=== PATIENT | female | born 1950 | race Caucasian/White ===

== ENCOUNTER → 2017-01-24 17:22 | Outpatient (CLI) | payer MEDICARE, OTHER | END | disposition home or self-care (01) | LOC: D.MAMMO 14:15 | DX: Z12.31 Encounter for screening mammogram for malignant neoplasm of breast (principal) ==

== ENCOUNTER → 2017-11-27 12:46 | Outpatient (CLI) | payer MEDICARE, OTHER | END | disposition home or self-care (01) | LOC: D.RAD 11-20 13:00 | DX: R13.12 Dysphagia, oropharyngeal phase (principal) ==

== ENCOUNTER → 2018-11-16 06:31 | Outpatient (CLI) | payer MEDICARE, OTHER | END | disposition home or self-care (01) | LOC: D.MRI 06:31 | DX: R51 Headache (principal) ==

== ENCOUNTER 2019-10-21 14:40 | Outpatient (CLI) | payer MEDICARE, OTHER ==
[~2019-10-21] VITALS: Ht 167.6 cm; Wt 68.2 kg
--- NOTE | ~2019-10-21 | HEMODYNAMI ---
PATIENT:MODE WREN MEDICAL RECORD: [id number] : 50 LOCATION:[facility] D.2117 ADMISSION DATE: 10/21/19 Generatedon:10/22/201911:22 Patient name: MODE RWEN Patient #: [id number] : 1950 Date of study: 10/22/2019 Page: Of Hemodynamic Procedure Report Patient Data Patient Demographics Procedure consent was obtained First Name: MODE Gender: Female Last Name: HOLGER : 1950 Middle Initial: RC Age: 69 year(s) Patient #: [id number] Race: SSN: [id number] Additional ID: [id number] Contact details Address: [address] [place] [address] [employer] State: [place] City: [place] Zip code: [address] Past Medical History Allergies: No known allergies Admission Admission Data Admission Date: 10/21/2019 Admission Time: 14:40 Arrival Date: 10/21/2019 Arrival Time: 14:40 Admit Source: Emergency Insurance Payor: Medicare department [facility] #: [id number] Room #: D.2117 Height (in.): 66 BSA: 1.77 (m2) Height (cm.): 167.64 BMI: 24.21 (kg/m2) Weight (lbs.): 150 Weight (kg.): 68.04 Lab Results Lab Result Date: 10/22/2019 Lab Result Time: 0:00 Biochemistry Name Units Result Min Max BUN mg/dl 15 --(--*-)-- 7 18 Creatinine mg/dl 0.7 --(*---)-- 0.6 1.3 eGFR ml/min 88.63036 -*(----)-- 90 120 NONAFRICAN CBC Name Units Result Min Max Hemoglobin g/dl 11.9 *-(----)-- 13.5 17.5 Procedure Procedure Types Cath Procedure Diagnostic Procedure LHC LHC w/Coronaries FFR/IVUS FFR Initial Sedation Charges Moderate Sedation up to 15 minutes PCI Procedure Coronary Stent Coronary Stent Initial x2 Hemochron ACT Test Procedure Description Procedure Date Procedure Date: 10/22/2019 Procedure Start Time: 11:00 Procedure End Time: 11:21 Procedure Staff Name Function Mario Garcia MD Performing Physician Ruma Sullivan RT Monitor Manasa Hemphill RT Scrub Hank Arevalo RN Nurse Procedure Data Cath Procedure Fluoroscopy Diagnostic fluoroscopy Total fluoroscopy Time: 5 time: 5 min min Diagnostic fluoroscopy Total fluoroscopy dose: dose: 1073 mGy 1073 mGy Contrast Material Contrast Material Type Amount (ml) Isovue 300 132 Entry Location Entry Primary Successful Side Size Upsize Upsize Entry Closure Panchal ccessful Closure Location (Fr) 1 (Fr) 2 (Fr) Remarks Device Remarks Radial Right 6 Fr Mechanical artery Short Compression Estimated blood loss: 5 ml Diagnostic catheters Device Type Used For End Catheter Placement DIAGNOSTIC [place] 110cm 5 Procedure Fr catheter ([id number]) Procedure Complications No complications Procedure Medications Medication Administration Route Dosage 0.9% NaCl I.V. 100 ml/hr Oxygen etCO2 Nasal cannula 2 l/min Heparin Flush Bag added to field 2 bags (1000units/500ml NS) Lidocaine 2% added to field 20 Radial Cocktail added to field 1 syringe (Verapamil 2mg/Nitro 400mcg/Heparin 1500units) Versed I.V. 1 mg Fentanyl I.V. 50 mcg Versed I.V. 1 mg Fentanyl I.V. 50 mcg Radial Cocktail I.A. 1 syringe (Verapamil 2mg/Nitro 400mcg/Heparin 1500units) Heparin Bolus I.V. 4000 units Plavix P.O. 75 mg Hemodynamics Rest BSA: 1.77 (m2) HGB: 11.9 (g/dl) O2 Consumption: Estimated: 170.01 (ml/min) O2 Co nsumption indexed: Estimated:96.05 (ml/min/m) Heart Rate: 80 (bpm) Snapshots Pre Cath Intra NCS Post Cath Vital Signs Time Heart Resp SPO2 etCO2 NIBP (mmHg) Rhythm Pain Sedation Rate (ipm) (%) (mmHg) Status Level (bpm) 10:53:41 83 18 97 0 128/79(102) NSR 0 (11) 10(A) , No pain 10:55:15 82 12 94 0 112/77(98) NSR 0 (11) 10(A) , No pain 10:59:23 74 15 92 44 108/58(77) NSR 0 (11) 10(A) , No pain 11:03:33 76 13 96 46.3 85/51(69) NSR 0 (11) 9(A) , No pain 11:07:37 75 19 95 26.5 95/57(69) NSR 0 (11) 9(A) , No pain 11:11:42 72 11 94 18.9 95/49(67) NSR 0 (11) 10(A) , No pain 11:15:44 79 14 96 47 108/59(79) NSR 0 (11) 10(A) , No pain 11:19:50 76 14 98 40.9 106/60(78) NSR 0 (11) 10(A) , No pain Medications Time Medication Route Dose Verified Delivered Reason Not es Effectiveness by by 10:58:25 0.9% NaCl I.V. 100 Hank Hank Per physician ml/hr Mickey Arevalo RN RN 10:58:35 Oxygen etCO2 2 l/min Hank Hank for low 02 sats Nasal Lorigan Lorigan cannula RN RN 10:58:45 Heparin Flush added 2 bags Hank Hank used for Bag to Lorigan Mickey procedure (1000units/500ml [facility] RN RN NS) 10:58:57 Lidocaine 2% added 20ml Hank Hank for local to vial Lorigan Lorigan anesthetic RN RN 10:59:10 Radial Cocktail added 1 Hank Hank used for (Verapamil to syringe Lorigan Lorigan procedure 2mg/Nitro RN RN 400mcg/Heparin 1500units) 10:59:22 Versed I.V. 1 mg Hank Hank for sedation Mickey Arevalo RN RN 10:59:30 Fentanyl I.V. 50 mcg Hank Hank for sedation Mickey Arevalo RN RN 11:00:56 Versed I.V. 1 mg Hank Hank for sedation Mickey Arevalo RN RN 11:01:01 Fentanyl I.V. 50 mcg Hank Hank for sedation Mickey Arevalo RN RN 11:02:36 Radial Cocktail I.A. 1 Hank Mario for (Verapamil syringe Mickey Garcia MD vasodilation 2mg/Nitro RN 400mcg/Heparin 1500units) 11:08:30 Heparin Bolus I.V. 4000 Hank Hank for units Mickey Arevalo anticoagulation RN RN 11:19:36 Plavix P.O. 75 mg Hank Mckinney for Mickey Mickey antiplatelet RN RN therapy Procedure Log Time Note 10::26 Diagnostic Cath Status : Urgent 10::13 Informed consent obtained and on chart 10:27:13 Admit Source: Emergency department 10:27:17 Arrival Date: 10/21/2019 2:40:00 PM 10:27:41 Insurance Payor : Medicare 10:28:11 Patient Height : 66 inches 10:28:15 Patient Weight : 150 lbs 10::47 Lab Result : Hemoglobin 11.9 g/dl 10::47 Lab Result : eGFR NONAFRICAN 88.59000 ml/min 10::47 Lab Result : BUN 15 mg/dl 10::47 Lab Result : Creatinine 0.7 mg/dl 10:32:09 Hank Arevalo RN sent for patient. Start room use. 10:32:10 Time tracking: Regular hours (M-F 7:00 - 5:00) 10:32:14 Plan of Care:Hemodynamics will remain stable., Cardiac rhythm will remain stable., Comfort level will be maintained., Respiratory function will remain adequate., Patient/ family verbilizes understanding of procedure., Procedure tolerated without complication., Recovers from procedure without complications.. 10:32:22 Risk of Mortality: 7.6 10:32:26 Risk of blood transfusion: 3.5 10:32:32 Risk of KATHY: 10.2 10:33:04 2) 60-89 Mildly reduced kidney function, and other findings (as for stage 1) point to kidney disease. 10:34:38 Maximum allowable contrast dose (3.7 X eGFR X 0.75)244 ml. 10:35:21 Patient received from Med II to CCL 2 Alert and oriented. Tansferred to table in Supine position. 10:35:22 Warm blankets applied, and farrah hugger turned on for patient comfort. 10:35:23 Correct patient and procedure confirmed by team. 10:35:23 ECG and BP/O2 sat monitors applied to patient. 10:40:41 Vital chart was started 10:40:42 Baseline sample Acquired. 10:40:43 Full Disclosure recording started 10:40:57 H&P Date Dictated: 10/21/2019 Within 30 days and on chart.. 10:40:58 Pre-procedure instructions explained to patient. 10:41:01 Family in patients room. 10:41:03 Patient NPO since Midnight. 10:41:09 Patient allergic to No known allergies 10:41:12 Is the patient allergic to Iodine/contrast media? No. 10:41:13 Was the patient premedicated? Yes 10:41:14 Is patient on blood thinner?No 10:41:22 Snore? Yes 10:41:25 Sleep apnea? No 10:41:29 Dentures? No ? 10:41:41 Right Radial & Right Groin area was prepped with chlora-prep and draped in sterile fashion 10:41:42 Alarms reviewed by R. N. 10:41:43 Sharps counted by scrub and verified by R.N. 10:41:44 Physician paged 10:48:17 Patient diabetic? No. 10:48:19 Previous problem with sedation/anesthesia? No ? 10:48:21 Deviated septum? No 10:48:21 Opens mouth fully? Yes 10:48:23 Sticks out tongue? Yes 10:48:26 Airway obstruction? No ? 10:48:31 Pre procedure: right dorsailis pedis pulse 2+ Normal; easily identifiable; not easily obliterated 10:48:33 Pre procedure: left dorsailis pedis pulse 2+ Normal; easily identifiable; not easily obliterated 10:48:35 Patient pain scale 0/10 ?. 10:54:49 Physician arrived 10:54:50 --------ALL STOP TIME OUT------ 10:54:50 Final Timeout: patient, procedure, and site verified with staff and physician. All members of the team are in agreement. 10:54:57 Right Radial & Right Groin site verified by team. 10:55:02 Fire Safety Assessment: A--An alcohol-based skin anteseptic being used preoperatively., C--Open oxygen or nitrous oxide is being used., D--An ESU, laser, or fiber-optic light is being used. 10:55:08 Physical assessment completed. ASA score P 2 - A patient with mild systemic disease as per Mario Garcia MD. 10:55:23 Use device set Radial Dx or PCI 10:55:25 ACIST Syringe (59232) opened to sterile field. 10:55:25 Medline Cath Pack ([id number]) opened to sterile field. 10:55:26 Bag Decanter (2002S) opened to sterile field. 10:55:26 ACIST Hand Control (29668) opened to sterile field. 10:55:27 ACIST Manifold (77496) opened to sterile field. 10:55:27 Tegaderm 4 x 4 (1626W) opened to sterile field. 10:55:30 MBrace Wrist Support ([id number]) opened to sterile field. 10:55:33 EMERALD Guide Wire (072-139) opened to sterile field. 10:55:33 SHEATH 6FR RAIN (9681348) opened to sterile field. 10:58:25 0.9% NaCl 100 ml/hr I.V. was administered by Hank Arevalo RN; Per physician; Verbal order read back and verified. 10:58:35 Oxygen 2 l/min etCO2 Nasal cannula was administered by Hank Arevalo RN; for low 02 sats; Verbal order read back and verified. 10:58:45 Heparin Flush Bag (1000units/500ml NS) 2 bags added to field was administered by Hank Arevalo RN; used for procedure; Verbal order read back and verified. 10:58:57 Lidocaine 2% 20ml vial added to field was administered by Hank Arevalo RN; for local anesthetic; Verbal order read back and verified. 10:59:10 Radial Cocktail (Verapamil 2mg/Nitro 400mcg/Heparin 1500units) 1 syringe added to field was administered by Hank Arevalo RN; used for procedure; Verbal order read back and verified. 10:59:22 Versed 1 mg I.V. was administered by Hank Arevalo RN; for sedation; Verbal order read back and verified. 10:59:30 Fentanyl 50 mcg I.V. was administered by Hank Arevalo RN; for sedation; Verbal order read back and verified. 11:00:41 Procedure started. 11:00:52 Local anesthetic to right radial artery with Lidocaine 2% by Mario Garcia MD.INITIAL ACCESS ONLY 11:00:56 Versed 1 mg I.V. was administered by Hank Arevalo RN; for sedation; Verbal order read back and verified. 11:01:01 Fentanyl 50 mcg I.V. was administered by Hank Arevalo RN; for sedation; Verbal order read back and verified. 11:01:04 A 6 Fr Short sheath was inserted into the Right Radial artery 11:02:10 A DIAGNOSTIC [place] 110cm 5 Fr catheter ([id number]) was advanced over the wire and used for Procedure. 11:02:14 LV angiography performed. 11:02:29 Zero performed for pressure channel P1 11::34 Zero performed for pressure channel P1 11:02:36 Radial Cocktail (Verapamil 2mg/Nitro 400mcg/Heparin 1500units) 1 syringe I.A. was administered by Mario Garcia MD; for vasodilation; Verbal order read back and verified. 11:02:48 LV gram done using PETE 11:03:06 EF : 60 % 11:03:12 LCA angiography performed. 11:04:26 RCA angiography performed. 11:06:09 GUIDE 6FR AR 1.0 catheter ([id number]) opened to sterile field. 11:06:10 INFLATOR Merit BasixCompak (KM3035) opened to sterile field. 11:06:10 Intale Verrata Plus pressure wire (76732P) opened to sterile field. 11:06:15 Catheter removed. 11:06:42 6 Fr ar1 guide catheter was inserted over the wire 11:08:19 FFR/IFR wire advanced. 11:08:30 Heparin Bolus 4000 units I.V. was administered by Hank Arevalo RN; for anticoagulation; Verbal order read back and verified. 11:09:08 PDA lesion measured at .88 with IFR 11:09:55 Pre PCI Site: [place] PDA has 80% stenosis. 11:11:12 Place stent Inflation Number: 1 A LUL RX 3.0 x 12 stent ([id number]) was prepped and advanced across the R PDA 80. The stent was deployed at 9 GE[place]GINA for 0:09 (min:sec) 0. 11:12:27 GUIDE 6FR XBLAD 3.5 SH catheter ([id number]) opened to sterile field. 11:12:37 Post PCI Site: [place] dRCA has 0% stenosis. 11:12:44 Wire removed. 11:12:45 Guide catheter removed. 11:13:09 6 Fr XBLAD3.5 guide catheter was inserted over the wire 11:13:14 CHOICE PT wire advanced. 11:13:25 CHOICE PT Extra Support 182cm wire ([id number]) opened to sterile field. 11:13:35 Wire advanced across lesion. 11:13:45 Pre PCI Site: [place] pLAD has 80% stenosis. 11:15:37 Place stent Inflation Number: 1 A LUL RX 3.5 x 12 stent ([id number]) was prepped and advanced across the Prox LAD 80. The stent was deployed at 15 GEORGINA for 0:08 (min:sec) 0. 11:16:06 Post PCI Site: [place] pLAD has 0% stenosis. 11:16:19 ZEPHYR REGULAR TR BAND (382132) opened to sterile field. 11:16:39 Wire removed. 11:16:40 Guide catheter removed. 11:18:16 Sheath removed intact; hemostasis achieved with Mechanical Compression to the Right Radial artery. 11:18:30 ACT drawn and resulted at 335 seconds. (normal therapeutic range 180-240 seconds). 11:18:38 Procedure ended.(Physican Out) 11:18:48 Fluoroscopy time 05.00 minutes. 11:18:54 Fluoroscopy dose: 1073 mGy 11:18:54 Flurop Dose total: 1073 11:18:59 Dose Area Product 07269 mGy/cm. 11:19:04 Contrast amount:Isovue 300 132ml. 11:19:05 Maximum allowable dose exceeded? No. 11:19:10 [place] band inflated with 10cc of air. 11:19:18 Insertion/operative site no bleeding no hematoma. 11:19:20 Post Procedure Pulses reassessed and unchanged 11:19:27 Post-procedure physical assessment completed. ASA score P 2 - A patient with mild systemic disease as per Mario Garcia MD. 11:19:32 Post procedure rhythm: unchanged. 11:19:36 Plavix 75 mg P.O. was administered by Hank Arevalo RN; for antiplatelet therapy; Verbal order read back and verified. 11:19:38 Estimated blood loss: 5 ml 11:19:39 Post procedure instruction explained to patient.Patient verbalizes understanding. 11:20:21 Procedure type changed to Cath procedure, Diagnostic procedure, LHC, LHC w/Coronaries, FFR/IVUS, FFR Initial, Sedation Charges, Moderate Sedation up to 15 minutes, PCI procedure, Coronary Stent, Coronary Stent Initial x2, Hemochron ACT Test 11:20:23 Procedure and supply charges have been captured, reviewed, submitted and are correct. 11:20:57 Procedure Complication : No complications 11:21:00 Vital chart was stopped 11:21:04 [facility] Findings: MVD- PCI performed (see procedure note) 11:21:10 Operative report dictated upon procedure completion. 11:21:11 See physician's report for complete and final results. 11:21:14 Report given to [facility]. 11:21:18 Patient transfered to [facility] with Stretcher. 11:21:20 Procedure ended. 11:21:20 Full Disclosure recording stopped 11:21:26 End room use (Document Last) 11:21:34 ACC-PCI Only Patient was given prescriptions, or instructed by Mario Garcia MD to start/continue the following medications upon discharge: Plavix Intervention Summary Intervention Notes Time ActionType Lesion and Equipment Used Action# Pressure Duration Attributes 11:11:12 Place stent R PDA LUL RX 3.0 x 1 9 00:09 12 stent ([id number]) 11:15:37 Place stent Prox LAD LUL RX 3.5 x 1 15 00:08 12 stent ([id number]) Device Usage Item Name Manufacture Quantity Catalog Number Hospital Part Current Minimal Lot# / Charge Number Stock Stock Serial# Code ACIST Syringe Acist 1 91524 212641 409383 [id number] 20 (54135) Medical Systems Inc Medline Cath Medline 1 [id number] 774145 95830 238992 5 Pack ([id number]) Bag Decanter Microtek 1 2001S 094553 51157 165393 5 (2001S) Medical Inc. ACIST Hand Acist 1 61121 708876 734478 726823 5 Control Medical (07673) Systems Inc ACIST Manifold Acist 1 01135 946651 913777 668953 5 (34583) Medical Systems Inc Tegaderm 4 x 4 3M 1 1626W 602639 294101 995635 5 (1626W) MBrace Wrist Advanced 1 140-0250-00 651188 17133 950828 5 Support Vascular (861331752) Dynamics EMERALD Guide Cardinal 1 609-980 155285 932722 905647 5 Wire (284-387) Health SHEATH 6FR Cardinal 1 7680172 116227 4670913 393030 5 RAIN (4374236) Health DIAGNOSTIC Terumo 1 00-4606 131483 005076 948918 5 [place] 110cm 5 Fr catheter (329850) GUIDE 6FR AR Medtronic 1 [id number] 203578 52728 396665 1 1.0 catheter ([id number]) INFLATOR Merit Merit 1 SN9856 072846 114543 075970 15 [facility] (KI5636) Glendora Glendora 1 06082E 865252 [id number] 685950 5 Verrata Plus pressure wire (99286P) LUL RX 3.0 x Medtronic 1 [id number] 053067 8966060 320376 5 [id number] 12 stent ([id number]) GUIDE 6FR Cardinal 1 [id number] 492528 852885 933969 3 XBLAD 3.5 SH Health catheter (08785671) CHOICE PT [place] 1 [id number] 123747 782336 463487 5 Extra Support Scientific 182cm wire ([id number]) LUL RX 3.5 x Medtronic 1 [id number] 105592 9142055 788136 5 [id number] 12 stent ([id number]) ZEPHYR REGULAR Cardinal 1 651955 129051 0127831 148794 5 [facility] (367492) Signature Audit [place] Stage Time Signature Unsigned Intra-Procedure 10/22/2019 Ruma Sullivan 11:21:55 AM RT(R) Intra-Procedure 10/22/2019 Hank 11:22:20 AM Mickey MASTERS Intra-Procedure 10/22/2019 Mario Garcia 11:22:41 AM Signatures Performing Physician : Signature : Mario Garcia MD Date : Time : Monitor : Ruma Sullivan Signature : RT Date : Time : Nurse : Hank Lorigan Signature : RN Date : Time : [place] [address] [place] [address]
[2019-10-21] MEDS ORDERED: LIPITOR40 MG PO (14:51)
[2019-10-21] MEDS ORDERED: PROTONIX40 MG PO (14:51)
[2019-10-21] MEDS ORDERED: CYMBALTA20 MG PO (14:52)
[2019-10-21] MEDS ORDERED: GABAPENTIN300 MG PO (14:52)
[2019-10-21 15:09] LABS: BASOPHILS 0.2 % (0-2); EOSINOPHILS 0.5 % (0-7); HEMATOCRIT 40.7 % (36.0-48.0); IMMATURE GRANULOCYTES 0.1 % (0-5); LYMPHOCYTES 13.3 % (15-50); MCH 32.2 pg (26.0-34.0); MCHC 34.4 g/dL (31.0-37.0); MCV 93.6 fL (80.0-100.0); MEAN PLATELET VOLUME 11.4 fL (7.4-10.4); NEUTROPHILS 80.9 % (40-80); PLATELET COUNT 154 10x3/uL (130-400); RBC 4.35 10x6/uL (4.00-5.40); RDW 12.8 % (11.5-14.5); WBC 10.5 10x3/uL (4.8-10.8)
[2019-10-21 15:35] LABS: APTT 26.7 SECONDS (22.8-39.4); INR 0.98 (0.85-1.17); PROTIME 12.5 SECONDS (11.6-15.0)
[2019-10-21 15:36] LABS: CALC OSMOLALITY 283 mosm/kg (275-300); CALCIUM 9.7 mg/dL (8.5-10.1); CARBON DIOXIDE 24.6 mmol/L (21.0-32.0); CHLORIDE - SERUM 104 mmol/L (98-107); CREATININE - SERUM 0.7 mg/dL (0.6-1.3); GLUCOSE 147 mg/dL (74-106); POTASSIUM - SERUM 3.5 mmol/L (3.5-5.1); SODIUM 140 mmol/L (136-145); UREA NITROGEN 18 mg/dL (7-18); eGFR NON AFRICAN AMERICAN 88 mL/min (90-120)
[2019-10-21 15:54] VITALS: Ht 167.6 cm; Wt 68.2 kg
[2019-10-21 15:59] LABS: ALBUMIN 3.9 g/dL (3.4-5.0); ALKALINE PHOSPHATASE 88 U/L (46-116); ALT (SGPT) 27 U/L (10-68); BILIRUBIN - TOTAL 0.39 mg/dL (0.2-1.3); CKMB 5.3 U/L (0.0-3.6); CREATINE KINASE 118 UL (21-215)
[2019-10-21 16:01] LABS: TROPONIN-I 3.264 ng/mL (0.000-0.060)
[2019-10-21 20:41] VITALS: BP 118/91
[2019-10-21] MEDS ORDERED: MAG-OX 400 MG400 MG PO (20:45)
[2019-10-21] MEDS ORDERED: VITAMIN D31000 UNIT PO (20:46)
[2019-10-22 00:35] VITALS: BP 112/57
[2019-10-22 04:00] VITALS: BP 91/51
[2019-10-22 05:46] LABS: BASOPHILS 0.4 % (0-2); EOSINOPHILS 2.5 % (0-7); HEMATOCRIT 35.8 % (36.0-48.0); HEMOGLOBIN 11.9 g/dL (12-16); IMMATURE GRANULOCYTES 0.4 % (0-5); LYMPHOCYTES 29.2 % (15-50); MCH 31.7 pg (26.0-34.0); MCHC 33.2 g/dL (31.0-37.0); MCV 95.5 fL (80.0-100.0); MEAN PLATELET VOLUME 11.4 fL (7.4-10.4); MONOCYTES 7.4 % (2-11); NEUTROPHILS 60.1 % (40-80); PLATELET COUNT 150 10x3/uL (130-400); RBC 3.75 10x6/uL (4.00-5.40); RDW 12.9 % (11.5-14.5)
[2019-10-22 06:05] LABS: ALBUMIN 3.4 g/dL (3.4-5.0); ALKALINE PHOSPHATASE 79 U/L (46-116); ALT (SGPT) 25 U/L (10-68); BILIRUBIN - TOTAL 0.37 mg/dL (0.2-1.3); CALC OSMOLALITY 279 mosm/kg (275-300); CALCIUM 8.6 mg/dL (8.5-10.1); CARBON DIOXIDE 28.2 mmol/L (21.0-32.0); CHLORIDE - SERUM 105 mmol/L (98-107); CREATININE - SERUM 0.7 mg/dL (0.6-1.3); POTASSIUM - SERUM 3.9 mmol/L (3.5-5.1); PROTEIN - SERUM 6.9 g/dL (6.4-8.2); SODIUM 140 mmol/L (136-145); UREA NITROGEN 15 mg/dL (7-18); eGFR NON AFRICAN AMERICAN 88 mL/min (90-120)
[2019-10-22 06:06] LABS: GLUCOSE 90 mg/dL (74-106)
[2019-10-22 06:36] LABS: WBC 5.7 10x3/uL (4.8-10.8)
--- NOTE | 2019-10-22 07:15 | NUR ---
RECEIVED PT IN BED AAOX4 RESP UNLABORED SKIN W/D COLOR WNL DENIES ANY NEEDS OR CHEST PAIN AT THIS TIME NAD NOTED WILL CONTINUE TO MONITOR
[2019-10-22 11:01] VITALS: BP 120/74
--- NOTE | 2019-10-22 11:17 | HP ---
PATIENT: MODE WREN MEDICAL RECORD: [id number] ACCOUNT: [id number] LOCATION:[address] : 50 ADMISSION DATE: 10/21/19 PCP: CHANDU BATISTA MD HISTORY AND PHYSICAL EXAMINATION ADMITTING DIAGNOSES: 1. Unstable angina. 2. Abnormal ECG. 3. Family history of coronary artery disease. 4. Hyperlipidemia. 5. Shortness of breath, dyspnea on exertion. HISTORY OF PRESENT ILLNESS: This is a woman with a history of coronary artery disease. Last cardiac catheterization was by Dr. Atkinson in 2006. He told her that she had coronary disease, but not to the degree of needing an intervention. She was doing well until the past few days. She has had increasing episodes of chest pain to the point of class IV rest pain as well she has significant shortness of breath and dyspnea on exertion. Her EKG has T-wave inversions in the inferior leads and flattened T waves in the lateral leads. She continues to have the pain at rest here while being interviewed in the Emergency Room. It is a relatively typical angina, dull aching heaviness sensation like a band around her chest. PHYSICAL EXAMINATION: CONSTITUTIONAL/GENERAL APPEARANCE: Well nourished, well developed, appears stated age. EYES: Lids and conjunctivae noninjected. No discharge. No pallor. ENT: Lips within normal limit. No cyanosis. No pallor. NECK: Carotid arteries, bilateral normal upstroke. No bruits. No thrills. No jugular venous pressure or distention. CERVICAL LYMPH NODES: Nontender. Nonenlarged. THYROID: Not enlarged. No nodules. CARDIOVASCULAR: Precordial exam, nondisplaced. No heaves or pericardial thrills. Rate and rhythm, regular. Heart sounds, normal S1, normal S2. No S3, no gallop, no rub. Systolic murmur, not heard. Diastolic murmur, not heard. RESPIRATORY: Respiratory effort, unlabored. Normal curvature. No thoracic deformity. No chest wall tenderness. Percussion, resonant. Auscultation, clear. No wheezes, no rales, no rhonchi. ABDOMEN: Soft, nondistended, nontender. No abdominal pain, no vomiting and normal appetite. MUSCULOSKELETAL: No joint tenderness, normal gait, normal tone. SKIN: Warm and dry. OVERALL IMPRESSION: Unstable angina with a classic anginal symptomatology, shortness of breath, abnormal ECG, most likely she does have clinically significant coronary artery disease. She has a past history of coronary artery disease from 12 years ago that was not intervened. We will proceed with coronary angiography in the a.m. Further care depends upon findings of the angiography. TRANSINT:[id number] Voice Confirmation ID: [id number] DOCUMENT ID: [id number] HISTORY AND PHYSICAL [id number] MODE WREN JEFFREY MD at 1117 CC: [id number] DICTATION DATE: 10/21/19 1556 OIL FIELD TESTER: 10/21/19 1610 REG [facility] [address] [place] [address]
[2019-10-22] MEDS ORDERED: BAYER CHEWABLE81 MG PO (11:39)
--- NOTE | 2019-10-22 12:45 | NUR ---
BETA NOELLE NOT GIVEN UPON DISCHARGE PATIENT IS HYPOTENSIVE.
[2019-10-22] MEDS ORDERED: PLAVIX75 MG PO (12:57)
--- NOTE | 2019-10-22 16:35 | NUR ---
REVIEWED DISCHARGED INSTRUCTIONS WITH PT STATES UNDERSTANDING COPY GIVENDCD SALINE LOCK TO RT WRIST WITH IV CATHETER INTACT SITE FREE OF REDNESS OR EDEMA ZEPHER BAND REMOVED DRSG APPLIED TO RT WRIST PT DISCHARGED HOME IN STABLE CONDITION WITH ALL PERSONAL BELONGINGS LEFT UNIT VIA W/C
--- NOTE | 2019-10-24 14:04 | DS ---
PATIENT:MODE WREN :50 MEDICAL RECORD: [id number] DISCHARGE SUMMARY ADMISSION DATE: 10/21/19 DISCHARGE DATE: 10/22/19 DATE OF DISCHARGE: 10/22/2019 DIAGNOSES: 1. Non-Q-wave myocardial infarction. 2. Percutaneous transluminal coronary angioplasty stent right coronary artery and left anterior descending this admission. 3. Coronary artery disease. 4. Hypertension. 5. Hyperlipidemia. HOSPITAL COURSE: Mrs. Wren presents with anginal symptomatology, found to have significant disease of the RCA and LAD, underwent successful PTCA stent of both territories, was discharged home with the addition of Plavix to her medical regimen. Follow up with [facility] in 1 month. TRANSINT:[id number] Voice Confirmation ID: [id number] DOCUMENT ID: [id number] YANETH IRWIN MD at 1404 CC: [id number] DICTATION DATE: 10/22/19 1123 DISABILITY ADVOCATE: 10/23/19 0634 DEP CLI 10/22/[address] [address]
--- NOTE | 2019-10-24 14:04 | OP ---
PATIENT NAME: MODE WREN MEDICAL RECORD: [id number] :50 [facility] AD[facility]ION DATE: SURGEON: AYNETH IRWIN MD DATE OF OPERATION: 10/22/2019 PROCEDURES: 1. PTCA stent LAD. 2. PTCA stent RCA. 3. IFR RCA. 4. Left heart catheterization. 5. Selective coronary angiography. 6. Left ventriculogram. INDICATION: Non-Q-wave myocardial infarction. PROCEDURE IN DETAIL: After informed consent was obtained and after a detailed description of the risks, benefits as well as alternative therapies, the patient elected to proceed with angiogram and angioplasty. The right radial area was prepped and draped in normal sterile fashion. Right radial artery was cannulated via modified Seldinger technique with placement of 6-Yemeni sheath. All catheters exchanged through this sheath. FINDINGS: Left ventriculogram was performed in standard 30-degree PETE view, reveals good cardiac wall motion, ejection fraction estimated 60%. SELECTIVE CORONARY ANGIOGRAPHY: 1. Left main is with no significant angiographic disease. 2. Left anterior descending has a hazy 80% stenosis in the proximal vessel. 3. Left circumflex has mild irregularities, but no flow-limiting stenosis. 4. Right coronary has 80% stenosis of the PDA and IFR was abnormal. PTCA STENT OF THE RCA: The stent used was a 3.0 x 12 mm [place]. Result was 0% residual stenosis. PTCA STENT OF THE LAD: The stent used was a 3.5 x 12 mm [place]. Result was 0% residual stenosis. OVERALL IMPRESSION: Successful PTCA stent of the LAD and RCA, both going from 80% initial stenosis to 0% residual. TRANSINT:[id number] Voice Confirmation ID: [id number] DOCUMENT ID: [id number] YANETH IRWIN MD at 1404 CC: [id number] DICTATION DATE: 10/22/19 1123 JAVA ANALYST: 10/22/19 1612 DEP CLI 10/22/[address] [address]
== END 2019-10-22 16:35 | disposition home or self-care (01) ==
LOC: D.OPS 14:40 → D.ER 14:40 → D.M2 14:40 → EDSTATUS 16:29 → D.OPS 10-22 16:35
PROVIDERS: Family Medicine; ATTEND Internal Medicine Interventional Cardiology
DX: I21.4 Non-ST elevation (NSTEMI) myocardial infarction (principal); E78.5 Hyperlipidemia, unspecified; I25.110 Atherosclerotic heart disease of native coronary artery with unstable angina pectoris; R94.39 Abnormal result of other cardiovascular function study; R06.02 Shortness of breath
CPT/HCPCS: 93458; 93571; C9600 ×2

== ENCOUNTER 2020-02-07 13:06 | Inpatient (IN) | payer MEDICARE, OTHER ==
[~2020-02-07] VITALS: Ht 167.6 cm; Wt 69.5 kg
--- NOTE | ~2020-02-07 | EC ---
PATIENT:MODE WREN DATE OF SERVICE: 02/08/20 SEX: F MEDICAL RECORD: [id number] DATE OF : 50 LOCATION:D.M2 D.212 AGE OF PATIENT: 69 ADMISSION DATE: 02/08/20 REFERRING PHYSICIAN: INTERPRETING PHYSICIAN: YUMIKO LEE MD ECHOCARDIOGRAM REPORT ECHO CHARGES 4 ECHO COMPLETE Date: 02/09/20 CLINICAL DIAGNOSIS: CP ECHOCARDIOGRAPHIC MEASUREMENTS (adult normal given) AC root (d.<3.7cm) 3.0 cm LV Septum d (<1.2 cm> 0.8 cm Valve Excursion 1.3 cm LV Septum (systole) 1.4 cm Left Atria (s.<4.0cm> 2.2 cm LVPW d(<1.2cm) 1.1 cm RV (d.<2.3cm) 2.4 cm LVPW (sytole) 1.2 cm LV diastole(<5.6CM) 5.5 cm MV E-F(>70mm/sec) cm LV systole 4.5 cm LVOT Diameter 1.9 cm MV exc.(>10mm) cm Est.ejection fraction (50-75%) % DOPPLER: LVIT cm/sec A 80 cm/sec E 51 cm/sec LA cm/sec RVSP 14.9 mmHg LVOT 95 cm/sec AOP1/2T m/s Asc. Ao 127 cm/sec RVOT 71 cm/sec RA cm/sec PA 83 cm/sec AV Gradient Peak 6.4 mmHg AV Mean 3.1 mmHg AV Area 2.3 cm MV Gradient Peak 2.6 mmHg MV Mean 1.3 mmHg MV Area cm COMMENTS: Patient Service Technician Pst: Henrietta HARDING President [employer] Ce[employer]: 4 Dr. Lee TAPE# PACS Pericardial Effusion N DATE OF SERVICE: 02/09/2020 PROCEDURE: Transthoracic echocardiogram. FINDINGS: Left ventricle shows mild left ventricular hypertrophy. Ejection fraction is 55%. Inflow characteristics consistent with diastolic dysfunction. Left atrium is normal size; normal function. Aortic valve appears to be normal structurally and functionally. ECHOCARDIOGRAM REPORT [id number] MODE WREN Mitral valve normal structure and function without significant mitral regurgitation. Tricuspid valve, normal structure and function and normal right ventricular systolic pressures. Pericardium was normal. Right ventricle is normal. Right atrium is normal. Pulmonic valve is normal. TRANSINT:[id number] Voice Confirmation ID: [id number] DOCUMENT ID: [id number] YUMIKO LEE MD CC: [id number] DICTATION DATE: 02/09/201912 CONSUMER LOAN PROCESSOR: 02/09/202229 DIS IN 02/09/20 [facility] [address] [id number]
--- NOTE | ~2020-02-07 | ST ---
PATIENT:MODE WREN MEDICAL RECORD: [id number] SEX: F LOCATION:[address] ORDER #: ADMISSION DATE: 02/08/20 AGE OF PATIENT: 69 REFERRING PHYSICIAN: INTERPRETING PHYSICIAN: YUIMKO LEE MD DATE OF SERVICE: 02/08/2020 LEXISCAN STRESS ONLY STRESS TEST PROCEDURE IN DETAIL: The patient was brought into the nuclear stress lab in a stable condition. The patient had a Lexiscan protocol Cardiolite stress test per usual protocol. The patient had significant ST segment depressions with the administration of the Lexiscan. The patient had mild chest discomfort. Ejection fraction was calculated at 71%. SPECT imaging showed evidence of possible inferior septal ischemic changes. They were mild to moderate. IMPRESSION: Abnormal nuclear stress test. RECOMMENDATIONS: Depending on clinical situation catheter-directed angiography may be helpful. Continue aggressive secondary risk factor modification and symptom directed therapy. TRANSINT:[id number] Voice Confirmation ID: [id number] DOCUMENT ID: [id number] YUMIKO LEE MD CC: [id number] DICTATION DATE: 02/09/20 1012 [facility] NURSE: 02/09/202306 DIS IN 02/09/20 [facility] [address] [place] [address]
--- NOTE | ~2020-02-07 | HEMODYNAMI ---
PATIENT:MODE WREN MEDICAL RECORD: [id number] : 50 LOCATION:[facility] D.2126 ADMISSION DATE: 02/08/20 Generatedon:02/09/202010:01 Patient name: MODE WREN Patient #: [id number] : 1950 Date of study: 02/09/2020 Page: Of Hemodynamic Procedure Report Patient Data Patient Demographics Procedure consent was obtained First Name: MODE Gender: Female Last Name: HOLGER : 1950 Middle Initial: RC Age: 69 year(s) Patient #: [id number] Race: SSN: [id number] Additional ID: [id number] Contact details Address: [address] [place] [address] [place] State: [place] City: [place] Zip code: [address] Past Medical History Allergies: No known allergies Admission Admission Data Admission Date: 02/08/2020 Admission Time: 15:53 Arrival Date: 02/09/2020 Arrival Time: 0:00 Room #: D.2126 Insurance Payor: Medicare [facility] #: [id number] Height (in.): 66 BSA: 1.78 (m2) Height (cm.): 167.64 BMI: 24.69 (kg/m2) Weight (lbs.): 153 Weight (kg.): 69.4 Lab Results Lab Result Date: 02/09/2020 Lab Result Time: 0:00 Biochemistry Name Units Result Min Max BUN mg/dl 17 --(---*)-- 7 18 Creatinine mg/dl 0.7 --(*---)-- 0.6 1.3 eGFR ml/min 88.13946 -*(----)-- 90 120 NONAFRICAN CBC Name Units Result Min Max Hematocrit % 39.8 -*(----)-- 42 54 Hemoglobin g/dl 12.9 -*(----)-- 13.5 17.5 Procedure Procedure Types Cath Procedure Diagnostic Procedure [facility] w/Coronaries Sedation Charges Moderate Sedation up to 15 minutes Procedure Description Procedure Date Procedure Date: 02/09/2020 Procedure Start Time: 9:41 Procedure End Time: 9:57 Procedure Staff Name Function Ruma Napierur RT Scrub Ava Francisco RT Monitor Zhane Wendi RT Sandblast Or Shotblast Equipment Tender Amna Victor RN Nurse Yessi Allred MD Performing Physician Procedure Data Cath Procedure Fluoroscopy Diagnostic fluoroscopy Total fluoroscopy Time: 4.2 time: 4.2 min min Diagnostic fluoroscopy Total fluoroscopy dose: 681 dose: 681 mGy mGy Contrast Material Contrast Material Type Amount (ml) Isovue 300 63 Entry Location Entry Primary Successful Side Size Upsize Upsize Entry Closure Panchal ccessful Closure Location (Fr) 1 (Fr) 2 (Fr) Remarks Device Remarks Radial Right 6 Fr Mechanical artery Short Compression Estimated blood loss: 5 ml Diagnostic catheters Device Type Used For End Catheter Placement DIAGNOSTIC [place] 110cm 5 Procedure Fr catheter ([id number]) DIAGNOSTIC Tray 110cm Procedure 5Fr catheter ([id number]) Procedure Complications No complications Procedure Medications Medication Administration Route Dosage 0.9% NaCl I.V. 100 ml/hr Oxygen etCO2 Nasal cannula 2 l/min Lidocaine 2% added to field 20 Heparin Flush Bag added to field 2 bags (1000units/500ml NS) Radial Cocktail added to field 1 syringe (Verapamil 2mg/Nitro 400mcg/Heparin 1500units) Versed I.V. 1 mg Fentanyl I.V. 25 mcg Hemodynamics Rest BSA: 1.78 (m2) HGB: 12.9 (g/dl) O2 Consumption: Estimated: 173.11 (ml/min) O2 Co nsumption indexed: Estimated:97.25 (ml/min/m) Heart Rate: 83 (bpm) Pressure Samples Time Site Value (mmHg) Purpose Heart Use Rate(bpm) 9:46 LV 132/-13,6 EDP 101 Gradients Valve Time Site Site Mean SEP/DFP Peak To Heart Use 1 2 (mmHg) (sec/min) Peak Rate (mmHg) (bpm) Aortic 9:46 LV AO 107 Snapshots Pre Cath Intra NCS Post Cath Vital Signs Time Heart Resp SPO2 etCO2 NIBP (mmHg) Rhythm Pain Sedation Rate (ipm) (%) (mmHg) Status Level (bpm) 9:27:45 81 18 100 33.1 Measuring NSR 0 (11) 10(A) , No pain 9:27:59 79 20 100 30.1 150/78(109) NSR 0 (11) 10(A) , No pain 9:32:07 84 16 99 36.9 140/91(116) NSR 0 (11) 10(A) , No pain 9:36:23 84 17 98 33.9 150/81(118) NSR 0 (11) 10(A) , No pain 9:40:41 81 16 97 30.8 144/77(113) NSR 0 (11) 10(A) , No pain 9:44:57 92 18 98 30.8 114/67(87) NSR 0 (11) 10(A) , No pain 9:49:05 90 16 97 32.4 132/71(95) NSR 0 (11) 10(A) , No pain 9:53:23 79 20 98 36.2 126/64(94) NSR 0 (11) 10(A) , No pain 9:57:37 77 20 95 35.4 129/67(97) NSR 0 (11) 10(A) , No pain Medications Time Medication Route Dose Verified Delivered Reason Notes Ef fectiveness by by 9:19:52 0.9% NaCl I.V. 100 Norred Amna used for ml/hr Chalino Victor well treatment offsider 9:19:58 Oxygen etCO2 2 l/min Norred Amna used for Nasal Chalino Victor procedure cannula RN 9:20:07 Lidocaine 2% added 20ml Norred Norred for local to vial Chalino Allred MD anesthetic field 9:20:15 Heparin Flush added 2 bags Norred Norred used for Bag to Chalino Allred MD procedure (1000units/500ml field NS) 9:26:02 Radial Cocktail added 1 Norred Norred used for (Verapamil to syringe Chalino Allred MD procedure 2mg/Nitro field 400mcg/Hepari 9:38:58 Versed I.V. 1 mg Norred Amna for Chalino Victor sedation RN 9:39:11 Fentanyl I.V. 25 mcg Norred Amna for Chalino Victor sedation chiller hand Log Time Note 8:27:59 Informed consent obtained and on chart 8:30:34 Lab Result : Hemoglobin 12.9 g/dl 8:30:34 Lab Result : Hematocrit 39.8 % 8:30:34 Lab Result : eGFR NONAFRICAN 88.89318 ml/min 8:30:34 Lab Result : BUN 17 mg/dl 8:30:34 Lab Result : Creatinine 0.7 mg/dl 8:30:43 Arrival Date: 02/09/2020 12:00:00 AM 8:31:30 Insurance Payor : Medicare 8:31:49 Patient Height : 66 inches 8:31:53 Patient Weight : 153 lbs 8:33:55 Time tracking: Regular hours (M-F 7:00 - 5:00) 8:34:05 Plan of Care:Hemodynamics will remain stable., Cardiac rhythm will remain stable., Comfort level will be maintained., Respiratory function will remain adequate., Patient/ family verbilizes understanding of procedure., Procedure tolerated without complication., Recovers from procedure without complications.. 8:34:12 Procedure Status Urgent Heart Cath (IP). 8:34:37 Patient allergic to No known allergies 8:36:49 Risk of Mortality: 0.1 8:36:53 Risk of blood transfusion: 0.2 8:36:58 Risk of KATHY: 1.0 9:11:54 Zhane Adame RT(R) sent for patient. Start room use. 9:14:47 Stress Test: no; N/A ? 9:19:43 Patient received from Med II to CCL 1 Alert and oriented. Tansferred to table in Supine position. 9:19:47 Warm blankets applied, and farrah hugger turned on for patient comfort. 9:19:49 Correct patient and procedure confirmed by team. 9:19:50 ECG and BP/O2 sat monitors applied to patient. 9:19:52 0.9% NaCl 100 ml/hr I.V. was administered by Amna Victor RN; used for procedure; Verbal order read back and verified. 9:19:58 Oxygen 2 l/min etCO2 Nasal cannula was administered by Amna Victor RN; used for procedure; Verbal order read back and verified. 9:20:07 Lidocaine 2% 20ml vial added to field was administered by Yessi Allred MD; for local anesthetic; Verbal order read back and verified. 9:20:15 Heparin Flush Bag (1000units/500ml NS) 2 bags added to field was administered by Yessi Allred MD; used for procedure; Verbal order read back and verified. 9:25:55 Vital chart was started 9:26:02 Radial Cocktail (Verapamil 2mg/Nitro 400mcg/Heparin 1500units) 1 syringe added to field was administered by Yessi Allred MD; used for procedure; Verbal order read back and verified. 9:27:06 Baseline sample Acquired. 9:27:20 Rhythm: sinus rhythm 9:27:24 Full Disclosure recording started 9:28:02 H&P Date Dictated: 02/09/2020 ER History on chart.. 9:28:04 Pre-op teaching completed and patient verbalized understanding. 9:28:04 Pre-procedure instructions explained to patient. 9:28:05 Family AVAILABLE WITH PHONE CALL 9:28:59 Patient NPO since Midnight. 9:29:00 Is the patient allergic to Iodine/contrast media? No. 9:29:07 Is patient on blood thinner?Yes 9:29:09 ACC The patient was administered the following blood thiners within the last 24 hours: ACCPlavix 9:29:35 Patient diabetic? No. 9:29:37 Patient not . Patient is over age 55. 9:29:41 Previous problem with sedation/anesthesia? No ? 9:29:43 Snore? Yes 9:29:44 Sleep apnea? No 9:29:45 Deviated septum? No 9:29:46 Opens mouth fully? Yes 9:29:56 Sticks out tongue? Yes 9:29:58 Airway obstruction? No ? 9:30:03 Dentures? No ? 9:30:11 Pre procedure: right dorsailis pedis pulse 1+ Palpable, but thready & weak; easily obliterated 9:30:13 Modified Juan Luis's test Ulnar < 7 seconds 9:30:20 Patient pain scale 0/10 CHEST PAIN OFF AN ON. . 9:30:26 IV patent on arrival in left hand with 0.9% NaCl at KVO. 9:30:33 Lab results completed and on chart. 9:30:37 Right Radial & Right Groin area was prepped with chlora-prep and draped in sterile fashion 9:30:38 Sharps counted by scrub and verified by R.N. 9:30:38 Alarms reviewed by R. N. 9:34:53 Use device set Radial Dx or PCI 9:34:55 ACIST Syringe (14120) opened to sterile field. 9:34:58 ACIST Hand Control (52034) opened to sterile field. 9:34:58 Bag Decanter (2001S) opened to sterile field. 9:34:58 Medline Cath Pack ([id number]) opened to sterile field. 9:34:59 Tegaderm 4 x 4 (1626W) opened to sterile field. 9:34:59 ACIST Manifold (84851) opened to sterile field. 9:35:06 MBrace Wrist Support (710773837) opened to sterile field. 9:35:07 SHEATH 6FR RAIN (5458986) opened to sterile field. 9:35:20 EMERALD Guide Wire (718-459) opened to sterile field. 9:37:46 --------ALL STOP TIME OUT------ 9:37:47 Final Timeout: patient, procedure, and site verified with staff and physician. All members of the team are in agreement. 9:37:49 Right Radial & Right Groin site verified by team. 9:37:51 Fire Safety Assessment: A--An alcohol-based skin anteseptic being used preoperatively., C--Open oxygen or nitrous oxide is being used., D--An ESU, laser, or fiber-optic light is being used. 9:37:56 Physical assessment completed. ASA score P 2 - A patient with mild systemic disease as per Yessi Allred MD. 9:38:00 2) 60-89 Mildly reduced kidney function, and other findings (as for stage 1) point to kidney disease. 9:38:05 Maximum allowable contrast dose (3.7 X eGFR X 0.75)245 ml. 9:38:08 Sedation plan: IV Moderate Sedation Medication:Versed, Fentanyl 9:38:58 Versed 1 mg I.V. was administered by Amna Victor RN; for sedation; Verbal order read back and verified. 9:39:11 Fentanyl 25 mcg I.V. was administered by Amna Victor RN; for sedation; Verbal order read back and verified. 9:39:17 Zero performed for pressure channel P1 9:39:44 Procedure started. 9:41:04 Local anesthetic to right radial artery with Lidocaine 2% by Yessi Allred MD.INITIAL ACCESS ONLY 9:43:20 A 6 Fr Short sheath was inserted into the Right Radial artery 9:43:28 A DIAGNOSTIC [place] 110cm 5 Fr catheter (018516) was advanced over the wire and used for Procedure. 9:45:40 LV gram done using PETE 9:45:44 Injector settings: Ml/sec: 12, Volume: 8, 9:46:13 LV hemodynamics recorded. 9:46:30 EF : 55 % 9:51:27 LCA angiography performed. 9:51:30 Catheter exchanged over wire. 9:51:39 A DIAGNOSTIC Tray 110cm 5Fr catheter (138411) was advanced over the wire and used for Procedure. 9:53:00 RCA angiography performed. 9:53:04 Injector settings: Ml/sec: 3, Volume: 6, 9:53:23 ACCDominant side:Right 9:53:25 Catheter removed. 9:53:31 ZEPHYR REGULAR TR BAND (886689) opened to sterile field. 9:53:54 Sheath removed intact; hemostasis achieved with Mechanical Compression to the Right Radial artery. 9:54:05 Procedure ended.(Physican Out) 9:54:26 Contrast amount:Isovue 300 63ml. 9:54:34 Fluoroscopy time 04.20 minutes. 9:54:41 Fluoroscopy dose: 681 mGy 9:54:41 Flurop Dose total: 681 9:54:51 Dose Area Product 99462 mGy/cm. 9:55:02 Maximum allowable dose exceeded? No. 9:55:04 Sharps counted by scrub and verified by R.N. 9:55:09 [place] band inflated with 10cc of air. 9:55:11 Insertion/operative site no bleeding no hematoma. 9:55:19 Post right radial artery:stable 9:55:25 Post-procedure physical assessment completed. ASA score P 2 - A patient with mild systemic disease as per Yessi Allred MD. 9:55:29 Post procedure rhythm: unchanged. 9:55:32 Estimated blood loss: 5 ml 9:55:34 Post procedure instruction explained to patient.Patient verbalizes understanding. 9:55:35 Patient needs reinforcement of post procedure teaching. 9:55:53 Procedure type changed to Cath procedure, Diagnostic procedure, LHC, LHC w/Coronaries, Sedation Charges, Moderate Sedation up to 15 minutes 9:55:56 Procedure and supply charges have been captured, reviewed, submitted and are correct. 9:56:49 Procedure Complication : No complications 9:56:53 Vital chart was stopped 9:56:56 [facility] Findings: mild to moderate CAD (<70%) 9:57:00 Operative report dictated upon procedure completion. 9:57:01 See physician's report for complete and final results. 9:57:04 Report given to [facility]. 9:57:09 Patient transfered to [facility] with Bed. 9:57:16 Full Disclosure recording stopped 9:57:16 Procedure ended. 9:57:33 End room use (Document Last) Device Usage Item Name Manufacture Quantity Catalog Hospital Part Current Minima l Lot# / Number Charge Number Stock Stock Serial# Code ACIST Acist 1 63249 378191 766731 951008 20 Syringe Medical (01727) Systems Inc Medline Medline 1 [id number] 612895 47329 624991 5 Cath Pack ([id number]) Bag Microtek 1 2001S 172167 19792 007078 5 Decanter Medical Inc. () ACIST Hand Acist 1 38173 404552 649426 764140 5 Control Medical (66855) Systems Inc ACIST Acist 1 26253 735094 759164 082898 5 Manifold Medical (83305) Systems Inc Tegaderm 4 3M 1 1626W 002714 717080 521271 5 x 4 (1626W) MBrace Advanced 1 140-0250-00 985155 73768 036049 5 Wrist Vascular Support Dynamics ([id number]) SHEATH 6FR Cardinal 1 6826337 497907 9037717 487305 5 [facility] (7270122) EMERALD Cardinal 1 502455 572586 936071 451972 5 Guide Wire Health (802-996) DIAGNOSTIC Terumo 1 40-0043 859098 363249 594099 5 [place] 110cm 5 Fr catheter (350675) DIAGNOSTIC Terumo 1 40-5023 170288 523037 006595 5 Tray 110cm 5Fr catheter (523809) ZEPHYR Cardinal 1 990574 260869 7916419 336419 5 REGULAR TR Health BAND (453052) Signature Audit Milam Stage Time Signature Unsigned Intra-Procedure 02/09/2020 Ava 9:58:07 AM Maryam RT(R) (CV) Intra-Procedure 02/09/2020 Amna Victor 9:58:49 AM [id number] [place] [address]
[~2020-02-07 13:06] MED LIST: BAYER CHEWABLE81 MG PO; CYMBALTA20 MG PO; GABAPENTIN300 MG PO; LIPITOR40 MG PO; MAG-OX 400 MG400 MG PO; PLAVIX75 MG PO; PROTONIX40 MG PO; VITAMIN D31000 UNIT PO
[2020-02-07 13:45] LABS: CALC OSMOLALITY 278 mosm/kg (275-300); CALCIUM 9.6 mg/dL (8.5-10.1); CHLORIDE - SERUM 102 mmol/L (98-107); CREATININE - SERUM 0.8 mg/dL (0.6-1.3); GLUCOSE 104 mg/dL (74-106); POTASSIUM - SERUM 3.9 mmol/L (3.5-5.1); SODIUM 139 mmol/L (136-145); UREA NITROGEN 16 mg/dL (7-18); eGFR NON AFRICAN AMERICAN 75 mL/min (90-120)
[2020-02-07 13:46] LABS: BASOPHILS 0.3 % (0-2); EOSINOPHILS 0.6 % (0-7); HEMATOCRIT 41.1 % (36.0-48.0); HEMOGLOBIN 13.6 g/dL (12-16); IMMATURE GRANULOCYTES 0.2 % (0-5); LYMPHOCYTES 23.6 % (15-50); MCH 31.4 pg (26.0-34.0); MCHC 33.1 g/dL (31.0-37.0); MCV 94.9 fL (80.0-100.0); MEAN PLATELET VOLUME 11.3 fL (7.4-10.4); MONOCYTES 6.1 % (2-11); NEUTROPHILS 69.2 % (40-80); PLATELET COUNT 144 10x3/uL (130-400); RBC 4.33 10x6/uL (4.00-5.40); RDW 12.7 % (11.5-14.5); WBC 6.2 10x3/uL (4.8-10.8)
[2020-02-07 14:01] LABS: ALBUMIN 4.3 g/dL (3.4-5.0); ALKALINE PHOSPHATASE 86 U/L (30-120); ALT (SGPT) 25 U/L (10-68); BILIRUBIN - TOTAL 0.56 mg/dL (0.2-1.3); CKMB 0.5 U/L (0.0-3.6); CREATINE KINASE 83 UL (21-215); MAGNESIUM - SERUM 2.1 mg/dL (1.8-2.4); PROTEIN - SERUM 8.2 g/dL (6.4-8.2); TROPONIN-I < 0.017 ng/mL (0.000-0.060)
[2020-02-07 14:18] LABS: APTT 27.1 SECONDS (22.8-39.4); INR 0.97 (0.85-1.17); PROTIME 12.9 SECONDS (11.6-15.0)
--- NOTE | 2020-02-07 17:00 | NUR ---
RECEIVED PT TO ROOM 2126 VIA BED FROM ER ACCOMPANIED BY ER STAFF. NO ACUTE NEEDS OR DISTRESS NOTED AT THIS TIME. WILL CONT TO MONITOR.
[2020-02-07 17:15] VITALS: BP 133/74; BMI 24.3
[2020-02-07 18:59] LABS: CKMB 0.4 U/L (0.0-3.6); CREATINE KINASE 75 UL (21-215)
[2020-02-07 19:01] LABS: TROPONIN-I < 0.017 ng/mL (0.000-0.060)
--- NOTE | 2020-02-07 20:00 | NUR ---
REPORT RECIEVED AND INITIAL ROUNDS COMPLETED. PT RESTING IN BED WITH NO DISTRESS. NO C/O CHEST PAIN. SR PER TELEMETRY. IV TO LEFT WRIST SALINE LOCKED. INSTRUCT ON NPO AFTER MIDNIGHT UNTIL SEEN BY SPONGE HOOKER IN AM.
--- NOTE | 2020-02-07 22:14 | NUR ---
PT RESTING IN BED WITH NO DISTRESS. SR PER TELEMETRY. CPOC.
[2020-02-07 22:37] VITALS: BP 147/78
--- NOTE | 2020-02-08 00:25 | NUR ---
RESTING IN BED, NO DISTRESS. SR PER TELEMETRY. CALL LIGHT IN REACH. SR UP X 2.
[2020-02-08 00:40] VITALS: BP 138/69
[2020-02-08 01:00] LABS: CKMB 0.4 U/L (0.0-3.6); CREATINE KINASE 71 UL (21-215); TROPONIN-I < 0.017 ng/mL (0.000-0.060)
[2020-02-08 04:00] VITALS: BP 138/73
--- NOTE | 2020-02-08 05:00 | NUR ---
RESTING WITH NO DISTRESS. NPO UNTIL SEEN BY SURGEON PARTNER. CALL LIGHT IN REACH. CPOC.
[2020-02-08 05:38] LABS: BASOPHILS 0.3 % (0-2); EOSINOPHILS 1.2 % (0-7); HEMATOCRIT 37.5 % (36.0-48.0); HEMOGLOBIN 12.2 g/dL (12-16); IMMATURE GRANULOCYTES 0.2 % (0-5); LYMPHOCYTES 20.9 % (15-50); MCHC 32.5 g/dL (31.0-37.0); MCV 95.4 fL (80.0-100.0); MEAN PLATELET VOLUME 11.4 fL (7.4-10.4); MONOCYTES 8.7 % (2-11); NEUTROPHILS 68.7 % (40-80); PLATELET COUNT 128 10x3/uL (130-400); RBC 3.93 10x6/uL (4.00-5.40); RDW 12.9 % (11.5-14.5); WBC 5.8 10x3/uL (4.8-10.8)
[2020-02-08 06:17] LABS: CALC OSMOLALITY 277 mosm/kg (275-300); CALCIUM 8.9 mg/dL (8.5-10.1); CARBON DIOXIDE 29.8 mmol/L (21.0-32.0); CHLORIDE - SERUM 103 mmol/L (98-107); CKMB 0.4 U/L (0.0-3.6); CREATINE KINASE 66 UL (21-215); CREATININE - SERUM 0.7 mg/dL (0.6-1.3); GLUCOSE 85 mg/dL (74-106); MAGNESIUM - SERUM 2.1 mg/dL (1.8-2.4); PHOSPHOROUS 3.8 mg/dL (2.5-4.9); POTASSIUM - SERUM 3.9 mmol/L (3.5-5.1); SODIUM 139 mmol/L (136-145); TROPONIN-I < 0.017 ng/mL (0.000-0.060); UREA NITROGEN 15 mg/dL (7-18); eGFR NON AFRICAN AMERICAN 88 mL/min (90-120)
--- NOTE | 2020-02-08 07:15 | NUR ---
RECEIVED PT IN BED AAOX4 RESP UNLABORED SKIN W/D COLOR WNL DENIES ANY NEEDS OR DISCOMFORT AT THIS TIME
[2020-02-08 08:07] VITALS: BP 145/72
[2020-02-08 10:32] VITALS: Ht 167.6 cm; Wt 69.5 kg
[2020-02-08 11:32] VITALS: BP 129/60
[2020-02-08 14:48] VITALS: BP 139/71
[2020-02-08 20:00] VITALS: BP 132/67
--- NOTE | 2020-02-08 20:00 | NUR ---
REPORT RECIEVED AND INITIAL ROUNDS COMPLETED. PT RESTING IN BED. ALERT/ORIENTED. INSTRUCTED TO BE NPO AFTER MIDNIGHT FOR HEART CATH AT [address] LEE. LEFT WRIST WITH PIV SALINE LOCKED. NONLABORED RESPIRATION ON ROOM AIR.
[2020-02-09 00:01] VITALS: BP 112/56
[2020-02-09 05:48] LABS: BASOPHILS 0.5 % (0-2); EOSINOPHILS 1.9 % (0-7); HEMATOCRIT 39.8 % (36.0-48.0); HEMOGLOBIN 12.9 g/dL (12-16); IMMATURE GRANULOCYTES 0.3 % (0-5); LYMPHOCYTES 17.5 % (15-50); MCHC 32.4 g/dL (31.0-37.0); MCV 95.7 fL (80.0-100.0); MEAN PLATELET VOLUME 11.6 fL (7.4-10.4); MONOCYTES 10.3 % (2-11); NEUTROPHILS 69.5 % (40-80); PLATELET COUNT 137 10x3/uL (130-400); RBC 4.16 10x6/uL (4.00-5.40); RDW 12.8 % (11.5-14.5)
[2020-02-09 05:55] LABS: WBC 3.8 10x3/uL (4.8-10.8)
[2020-02-09 06:17] LABS: CALC OSMOLALITY 280 mosm/kg (275-300); CALCIUM 9.3 mg/dL (8.5-10.1); CARBON DIOXIDE 26.4 mmol/L (21.0-32.0); CHLORIDE - SERUM 103 mmol/L (98-107); CREATININE - SERUM 0.7 mg/dL (0.6-1.3); GLUCOSE 97 mg/dL (74-106); MAGNESIUM - SERUM 2.2 mg/dL (1.8-2.4); PHOSPHOROUS 4.2 mg/dL (2.5-4.9); POTASSIUM - SERUM 3.8 mmol/L (3.5-5.1); SODIUM 140 mmol/L (136-145); UREA NITROGEN 17 mg/dL (7-18); eGFR NON AFRICAN AMERICAN 88 mL/min (90-120)
--- NOTE | 2020-02-09 07:30 | NUR ---
PT SITTING UP IN BED. RR EVEN AND UNLABORED. IV WRAPPED AND PT IN SHOWER. AWARE OF CALL LIGHT IN BATHROOM. INSTRUCTED TO CALL IF SHE NEEDED HELP. WILL CONTINUE TO MONITOR.
[2020-02-09 08:53] VITALS: BP 124/83
--- NOTE | 2020-02-09 09:28 | NUR ---
LEFT VIA BED FOR PROCEDURE
[2020-02-09 10:14] VITALS: BP 121/71
--- NOTE | 2020-02-09 10:19 | NUR ---
RECIEVED PT FROM PLASMA CENTER TECHNICIAN VIA BED. PT SLEEPING BUT EASILY AROUSED. VS DOCUMENTED AND STABLE AT THIS TIME. DIET COKE RECIEVED PER REQUEST. CALL LIGHT WITHIN REACH. RR EVEN AND UNLABORED. PLACED ON 2L NC FOR NOW. WILL CONTINUE TO MONITOR.
--- NOTE | 2020-02-09 12:12 | NUR ---
2MLS OF AIR RELEASED FROM TR BAND. NO SIGN OF BLEEDING OR SWELLING NOTED.
--- NOTE | 2020-02-09 12:25 | NUR ---
2MLS OF AIR RELEASED FROM TR BAND. NO SIGN OF BLEEDING OR SWELLING NOTED.
--- NOTE | 2020-02-09 12:51 | NUR ---
2 MLS OF AIR RELEASED FROM TR BAND, NO SIGN OF BLEEDING OR SWELLING NOTED.
--- NOTE | 2020-02-09 12:54 | MORECARE ---
CASE MANAGEMENT DISCHARGE SUMMARY PATIENT: MODE WREN UNIT: [id number] ADM DATE: 02/08/20 AGE: 69 : 50 SEX: F ROOM/BED: D.6546 AUTHOR: KATHRINE ROWLEY PHYSICIAN: REFERRING PHYSICIAN: DAO CRAIG MD DATE OF SERVICE: 02/09/20 Discharge Plan Patient Name: MODE WREN [facility] [facility] 1950 Planned Disposition: Home or Self Care Anticipated Discharge Date: Discharge Date: Expected LOS: Initial Reviewer: [email or web address] Initial Review Date: 02/07/2020 Generated: 02/09/20 1:54 pm Coverage Notice Reviewer: [email or web address] Raven Beal Notice Issued Date-Time: 02/07/2020 17:26 Notice Type: Medicare Outpatient Observation Notice Notice Delivered To: Patient Relationship to Patient: Self Salon Stylist Name: Delivery Method: HAND - Hand Delivered Dafne Days: Prior Verbal Notification: Recipient Understood Notice: Yes Recipient Signature: Yes Med Rec Note Co-signed by Attending: Coverage Notice Comment: LAURE explained, signed, given, copy placed in MR Patient Name: MODE WREN Page [phone] at 1254 All edits/amendments must be made on the electronic document DICTATION DATE: 02/09/20 1254 PROCESS VALIDATION ENGINEER: WENDY 02/09/20 1254 RPT#: [id number] DC DATE: STATUS: ADM IN [facility] [address] [place] [address] END OF REPORT
--- NOTE | 2020-02-09 13:00 | NUR ---
2MLS OF AIR RELEASED FROM TR BAND. NO SIGN OF BLEEDING OR SWELLING NOTED.
--- NOTE | 2020-02-09 13:01 | MORECARE ---
CASE MANAGEMENT DISCHARGE SUMMARY PATIENT: MODE WREN UNIT: [id number] ADM DATE: 02/08/20 AGE: 69 : 50 SEX: F ROOM/BED: D.8498 AUTHOR: KATHRINE ROWLEY PHYSICIAN: REFERRING PHYSICIAN: DAO CRAIG MD DATE OF SERVICE: 02/09/20 Discharge Plan Patient Name: MODE WREN [facility] [facility] 1950 Planned Disposition: Home or Self Care Anticipated Discharge Date: Discharge Date: Expected LOS: Initial Reviewer: [email or web address] Initial Review Date: 02/07/2020 Generated: 02/09/20 2:01 pm Comments DCP- Discharge Planning Updated by [email or web address]: Naty Griffith on 02/09/20 11:[address] attempted to see patient, but she was having an ECHO at the time. Will attempt to see her again at a later time Coverage Notice Reviewer: [email or web address] Raven Beal Notice Issued Date-Time: 02/07/2020 17:26 Notice Type: Medicare Outpatient Observation Notice Notice Delivered To: Patient Relationship to Patient: Self Tapping Machine Operator Name: Delivery Method: HAND - Hand Delivered Dafne Days: Prior Verbal Notification: Recipient Understood Notice: Yes Recipient Signature: Yes Med Rec Note Co-signed by Attending: Coverage Notice Comment: LAURE explained, signed, given, copy placed in MR Last DP export: 02/09/20 11:54 a Patient Name: MODE WREN Page [phone] at 1301 All edits/amendments must be made on the electronic document DICTATION DATE: 02/09/20 1301 INDUSTRIAL ENGINEERING MANAGER: WENDY 02/09/20 1301 RPT#: [id number] DC DATE: STATUS: ADM IN [facility] [address] [place] [address] END OF REPORT
--- NOTE | 2020-02-09 13:15 | MORECARE ---
CASE MANAGEMENT DISCHARGE SUMMARY PATIENT: MODE WREN UNIT: [id number] ADM DATE: 02/08/20 AGE: 69 : 50 SEX: F ROOM/BED: D.1336 AUTHOR: KATHRINE ROWLEY PHYSICIAN: REFERRING PHYSICIAN: DAO CRAIG MD DATE OF SERVICE: 02/09/20 Discharge Plan Patient Name: MODE WREN [facility] [facility] 1950 Planned Disposition: Home or Self Care Anticipated Discharge Date: Discharge Date: Expected LOS: Initial Reviewer: [email or web address] Initial Review Date: 02/07/2020 Generated: 02/09/20 2:15 pm Comments DCP- Discharge Planning Updated by [email or web address]: Naty Griffith on 02/09/20 12:[address] Spoke with patient over the phone, she stated that her is outside now ready to pick her up. She does not need anything from a CM standpoint. DCP- Discharge Planning Updated by [email or web address]: Naty Griffith on 02/09/20 11:[address] attempted to see patient, but she was having an ECHO at the time. Will attempt to see her again at a later time Coverage Notice Reviewer: [email or web address] - Kacie Beal Notice Issued Date-Time: 02/07/2020 17:26 Notice Type: Medicare Outpatient Observation Notice Notice Delivered To: Patient Relationship to Patient: Self Telephone Clerks Supervisor Name: Delivery Method: HAND - Hand Delivered Dafne Days: Prior Verbal Notification: Recipient Understood Notice: Yes Recipient Signature: Yes Med Rec Note Co-signed by Attending: Coverage Notice Comment: LAURE explained, signed, given, copy placed in MR Last DP export: 02/09/20 12:01 p Patient Name: MODE WREN Page [phone] at 1315 All edits/amendments must be made on the electronic document DICTATION DATE: 02/09/20 1315 HELPDESK SPECIALIST: WENDY 02/09/20 1315 RPT#: [id number] DC DATE: STATUS: ADM IN [facility] [address] [place] [address] END OF REPORT
--- NOTE | 2020-02-09 13:38 | NUR ---
TR BAND REMOVED. NO SIGN OF BLEEDING OR SWELLING NOTED. PT INSTRUCTED TO RETURN TO ER IF BLEEDING OCCURS. D/C INSTRUCTIONS REVIEWED WITH PT. VERBALZIED AGREEMENT. IV D/C WITH CATHETER TIP INTACT. MONITOR REMOVED AND RETURNED TO CLINICAL DATA ASSISTANT. PT LEFT WITH ALL BELONGINGS TO PERSONAL VEHICLE VIA WHEELCHAIR. STATES HE IS DRIVING HER HOME.
--- NOTE | 2020-02-09 16:22 | MORECARE ---
CASE MANAGEMENT DISCHARGE SUMMARY PATIENT: MODE WREN UNIT: [id number] ADM DATE: 02/08/20 AGE: 69 : 50 SEX: F ROOM/BED: D.[id number] AUTHOR: KATHRINE ROWLEY PHYSICIAN: REFERRING PHYSICIAN: DAO CRAIG MD DATE OF SERVICE: 02/09/20 Discharge Plan Patient Name: MODE WREN Facility: [facility]:[place] : 1950 Planned Disposition: Home or Self Care Anticipated Discharge Date: Discharge Date: 02/09/2020 Expected LOS: Initial Reviewer: [id number] Initial Review Date: 02/07/2020 Generated: 02/09/20 5:22 pm Comments DCP- Discharge Planning Updated by [email or web address]: Naty Griffith on 02/09/20 12:[address] Spoke with patient over the phone, she stated that her is outside now ready to pick her up. She does not need anything from a CM standpoint. DCP- Discharge Planning Updated by [email or web address]: Naty Griffith on 02/09/20 11:[address] attempted to see patient, but she was having an ECHO at the time. Will attempt to see her again at a later time Coverage Notice Reviewer: [id number] Raven Beal Notice Issued Date-Time: 02/07/2020 17:26 Notice Type: Medicare Outpatient Observation Notice Notice Delivered To: Patient Relationship to Patient: Self Generator Mechanic Name: Delivery Method: HAND - Hand Delivered [place] Days: Prior Verbal Notification: Recipient Understood Notice: Yes Recipient Signature: Yes Med Rec Note Co-signed by Attending: Coverage Notice Comment: LAURE explained, signed, given, copy placed in MR Last DP export: 02/09/20 12:15 p Patient Name: MODE WREN Page [id number] at 1622 All edits/amendments must be made on the electronic document DICTATION DATE: 02/09/20 1622 FLATWORK FOLDER: WENDY 02/09/20 1622 RPT#: [id number] DC DATE:02/09/20 STATUS: DIS IN [place] [id number] [place] [address] END OF REPORT
== END 2020-02-09 13:42 | disposition home or self-care (01) | DRG 287 ==
LOC: D.ER 13:06 → D.M2 14:12 → OBSVTIME 14:12 → D.M2 02-08 15:53
PROVIDERS: Emergency Medicine; Internal Medicine Cardiovascular Disease; ADMIT Internal Medicine Nephrology; ATTEND Internal Medicine Nephrology
PROC: B2151ZZ Fluoroscopy of Left Heart using Low Osmolar Contrast (ICD-10-PCS; 2020-02-09)
PROC: 4A023N7 Measurement of Cardiac Sampling and Pressure, Left Heart, Percutaneous Approach (ICD-10-PCS; 2020-02-09)
PROC: B2111ZZ Fluoroscopy of Multiple Coronary Arteries using Low Osmolar Contrast (ICD-10-PCS; principal; 2020-02-09 09:15)
DX: I25.119 Atherosclerotic heart disease of native coronary artery with unspecified angina pectoris (principal); E78.5 Hyperlipidemia, unspecified; F32.9 Major depressive disorder, single episode, unspecified; I10 Essential (primary) hypertension

== ENCOUNTER 2020-04-06 19:00 | Outpatient (CLI) | payer MEDICARE, OTHER ==
[2020-02-08 10:32] VITALS: BMI 24.7
== END 2020-04-06 23:59 | disposition home or self-care (01) ==
LOC: D.MAMMO 19:00
PROVIDERS: ATTEND Family Medicine
DX: Z12.31 Encounter for screening mammogram for malignant neoplasm of breast (principal)

== ENCOUNTER 2020-04-13 19:00 | Outpatient (CLI) | payer MEDICARE, OTHER ==
[2020-02-08 10:32] VITALS: BMI 24.7
== END 2020-04-13 23:59 | disposition home or self-care (01) ==
LOC: D.MAMMO 19:00
PROVIDERS: ATTEND Family Medicine
DX: R92.8 Other abnormal and inconclusive findings on diagnostic imaging of breast (principal)